=== PATIENT | female | born 1980 | race Caucasian/White ===

== ENCOUNTER 2019-01-24 13:35 | Inpatient (IN) | payer OTHER ==
[~2019-01-24] VITALS: Ht 162.6 cm; Wt 64.9 kg
[2019-01-24] MEDS ORDERED: ZYRTEC10 M3 (13:54)
[2019-01-24] MEDS ORDERED: SINGULAIR10 MG (13:55)
--- NOTE | 2019-01-24 13:57 | NUR ---
SE RECIBE PTE ALERTA Y ORIENTADA X 3 ESFERAS. REFIERE DOLOR ABDOMINAL HACE 7 RAZA, LA MISMA INDICA FUE EVALUADA Y ENVIADA A ER POR TEJEDA GASTRO. SE UBICA EN AREA DE OBSERVACION.
--- NOTE | 2019-01-24 15:56 | NUR ---
SE ORIENTA PTE SOBRE TX MEDICO EL CUAL REFIERE ENTENDER.SE LE EXTRAEN MUESTRAS,SE CANALIZA Y SE ADMINISTRA MEDICAMENTO MIGUELINA ORDEN MEDICA.SE NOTIFICA SONOGRAMA.
--- NOTE | 2019-01-25 00:27 | NUR ---
PT ALERTA Y ORIENTADA X3 ESFERAS SE RECIBE EN CAMA CON BARANDAS ELEVADAS Y FRENOS COLOCADOS. HEPARIN LOCK PATENTE ROSE DE EDEMA Y/O ERITEMA. IVLFUIDS PATENTE BAJANDO POR REGULADOR. PT [place]. PENDIENTE VISITA DE DR ALLY TANNRE. EN COMPANIA DE FAMILIAR.
--- NOTE | 2019-01-25 07:08 | NUR ---
SE RECIBE PTE ALERTA Y ORIENTADA X 3 ESFERAS, EN CAMA NIVEL MAS BAJO CHAVARRIA DE IDENTIFICACION Y BARANDAS ELEVADAS POR PRECAUCION. SE OBSERVA EN COMPANIA DE FAMILIAR CON BUEN PATRON RESPIRATORIO Y PIEL TIBIA AL TACTO. PTE PENDIENTE A CONSULTA CON DR Dima TANNER. SE MANTIENE BAJO OBSERVACION.
[2019-01-27] MEDS ORDERED: PERCOCET 5-3251 EACH PO (13:50)
== END 2019-01-27 15:17 | disposition home or self-care (01) | DRG 419 ==
LOC: ER 13:35 → SURH 01-25 11:17 → O/R 01-25 11:17 → SURH 01-25 16:45
PROVIDERS: ADMIT Surgery
PROC: 0FT44ZZ Resection of Gallbladder, Percutaneous Endoscopic Approach (ICD-10-PCS; principal; 2019-01-25 12:00)
DX: K80.10 Calculus of gallbladder with chronic cholecystitis without obstruction (principal)

== ENCOUNTER 2019-04-09 19:33 | Emergency (ER) | payer OTHER ==
[~2019-04-09] VITALS: Ht 154.9 cm; Wt 63.0 kg
[~2019-04-09 19:33] MED LIST: PERCOCET 5-3251 EACH PO; SINGULAIR10 MG; ZYRTEC10 M3
== END 2019-04-10 01:39 | disposition home or self-care (01) ==
LOC: ER 19:33
DX: O20.0 Threatened abortion (principal)

== ENCOUNTER 2019-10-09 06:01 | Day surgery (SDC) | payer OTHER ==
[~2019-10-09 06:01] MED LIST changes: +LEVOTHYROXINE25 MCG PO; +LOVENOX40 MG/0.4 SUBCUTANEO; +PRENATABS RX T1 EACH PO
== END 2019-10-09 14:30 | disposition home or self-care (01) ==
LOC: CIR.AMB 06:01
DX: O34.32 Maternal care for cervical incompetence, second trimester (principal)

== ENCOUNTER 2020-01-12 05:10 | Inpatient (IN) | payer OTHER ==
[~2020-01-12] VITALS: Ht 152.4 cm; Wt 65.8 kg
[2020-01-12] MEDS ORDERED: TERBUTALINE SU2.5 MG PO (06:12)
== END 2020-01-15 12:26 | disposition home or self-care (01) | DRG 768 ==
LOC: LDR 05:10 → OB/GYN 05:10
PROVIDERS: ADMIT Specialist
PROC: 0UQC7ZZ Repair Cervix, Via Natural or Artificial Opening (ICD-10-PCS; 2020-01-12)
PROC: 4A1HXFZ Monitoring of Products of Conception, Cardiac Rhythm, External Approach (ICD-10-PCS; 2020-01-12)
PROC: 3E033VJ Introduction of Other Hormone into Peripheral Vein, Percutaneous Approach (ICD-10-PCS; 2020-01-12)
PROC: 10D07Z8 Extraction of Products of Conception, Other, Via Natural or Artificial Opening (ICD-10-PCS; principal; 2020-01-12 16:30)
DX: O36.4XX0 Maternal care for intrauterine death, not applicable or unspecified (principal); Z37.1 Single stillbirth; O71.3 Obstetric laceration of cervix; O99.12 Other diseases of the blood and blood-forming organs and certain disorders involving the immune mechanism complicating childbirth; D68.59 Other primary thrombophilia; Z3A.29 29 weeks gestation of pregnancy

== ENCOUNTER 2020-01-22 16:56 | Inpatient (IN) | payer OTHER ==
[~2020-01-22] VITALS: Ht 154.9 cm; Wt 59.0 kg
[~2020-01-22 16:56] MED LIST changes: +TERBUTALINE SU2.5 MG PO
== END 2020-01-24 12:44 | disposition home or self-care (01) | DRG 769 ==
LOC: OB/GYN 16:56
PROVIDERS: ADMIT Specialist
PROC: 30233N1 Transfusion of Nonautologous Red Blood Cells into Peripheral Vein, Percutaneous Approach (ICD-10-PCS; 2020-01-23)
PROC: 10D17ZZ Extraction of Products of Conception, Retained, Via Natural or Artificial Opening (ICD-10-PCS; principal; 2020-01-23 08:00)
DX: O73.1 Retained portions of placenta and membranes, without hemorrhage (principal); O90.81 Anemia of the puerperium; T80.89XA Other complications following infusion, transfusion and therapeutic injection, initial encounter; L29.9 Pruritus, unspecified; Y84.9 Medical procedure, unspecified as the cause of abnormal reaction of the patient, or of later complication, without mention of misadventure at the time of the procedure

== ENCOUNTER 2020-05-30 05:56 | Day surgery (SDC) | payer OTHER ==
[2020-05-30] MEDS ORDERED: PERCOCET 5-3251 EACH PO (09:39)
== END 2020-05-30 14:40 | disposition home or self-care (01) ==
LOC: CIR.AMB 05:56
PROVIDERS: ATTEND Obstetrics & Gynecology Gynecology
DX: D27.1 Benign neoplasm of left ovary (principal); Z20.828 Contact with and (suspected) exposure to other viral communicable diseases

== ENCOUNTER 2020-10-21 05:30 | Day surgery (SDC) | payer OTHER | END 2020-10-21 13:55 | disposition home or self-care (01) | LOC: CIR.AMB 05:30 | PROVIDERS: ATTEND Specialist | DX: O34.33 Maternal care for cervical incompetence, third trimester (principal) ==

== ENCOUNTER 2021-04-18 05:22 | Inpatient (IN) | payer OTHER ==
[~2021-04-18] VITALS: Ht 154.9 cm; Wt 2.7 kg
[2021-04-18] MEDS ORDERED: PRENATAL TABLE1 EAC1 PO (06:31)
[2021-04-18] MEDS ORDERED: LOVENOX40 MG/0.4 SUBCUTANEO (06:31)
[2021-04-18] MEDS ORDERED: NIFEDIPINE20 MG PO (06:33)
== END 2021-04-21 13:53 | disposition home or self-care (01) | DRG 786 ==
LOC: LDR 05:22 → O/R 19:05 → OB/GYN 19:45
PROVIDERS: ADMIT Specialist; ATTEND Specialist
PROC: 4A1HXFZ Monitoring of Products of Conception, Cardiac Rhythm, External Approach (ICD-10-PCS; 2021-04-18)
PROC: 10D00Z1 Extraction of Products of Conception, Low, Open Approach (ICD-10-PCS; principal; 2021-04-18 17:15)
DX: O61.0 Failed medical induction of labor (principal); O34.33 Maternal care for cervical incompetence, third trimester; O62.0 Primary inadequate contractions; Z3A.37 37 weeks gestation of pregnancy; Z37.0 Single live birth; Z20.822 Contact with and (suspected) exposure to COVID-19

== ENCOUNTER 2025-07-09 06:00 | Day surgery (SDC) | payer OTHER ==
[2025-07-08 13:46] LABS: INR 1.03
[~2025-07-09 06:00] MED LIST changes: +NIFEDIPINE20 MG PO; +PRENATAL TABLE1 EAC1 PO
== END 2025-07-09 14:20 | disposition home or self-care (01) ==
LOC: CIR.AMB 06:00
PROVIDERS: ATTEND Specialist
DX: O02.1 Missed abortion (principal)